=== PATIENT | female | born 1990 | race Two or more races ===

== ENCOUNTER 2023-05-22 08:26 | Day surgery (SDC) | payer OTHER, SELFPAY ==
[2023-05-22 08:56] LABS: Basophils Percent Auto 0.4 % (0.2-2.0); Eosinophils Absolute Auto 0.1 10^3/uL (0.0-0.7); Eosinophils Percent Auto 1.3 % (0.9-7.0); Hematocrit 36.4 % (36.0-48.0); Hemoglobin 12.1 g/dL (12.0-16.0); Immature Granulocytes Abs Auto 0.01 10^3/uL (0.00-0.03); Immature Granulocytes Pct Auto 0.1 % (0.0-0.5); Lymphocytes Absolute Auto 2.4 10^3/uL (1.2-3.8); Lymphocytes Percent Auto 33.7 % (20.5-60.0); Mean Corpuscular HGB Conc 33.2 g/dL (29.9-35.2); Mean Corpuscular Hemoglobin 26.7 pg (26.7-34.0); Mean Corpuscular Volume 80.4 fL (81.0-99.0); Mean Platelet Volume 8.8 fL (9.5-13.5); Monocytes Absolute Auto 0.5 10^3/uL (0.3-0.8); Monocytes Percent Auto 7.2 % (1.7-12.0); Neutrophils Percent Auto 57.3 % (43.0-75.0); Platelet Count 257 10^3/uL (150-450); Red Blood Count 4.53 10^6/uL (4.20-5.40)
[2023-05-22 08:58] VITALS: BMI 37.7
[2023-05-22 09:05] LABS: Glucometer 129 mg/dL (74-106)
[2023-05-22 09:17] VITALS: BP 170/92; PULSE 77; RESP 16; TEMP 36.3; O2SAT 98
[2023-05-22] MEDS: LACTATED RINGER'S SOLUTION 1,000 ML 50 ML IV (09:25)
[2023-05-22 09:31] LABS: HCG Quantitative 21524 mIU/mL
--- NOTE | 2023-05-22 10:00 | PM.ONB ---
Brief Operative Note Date of procedure: 05/22/23 Pre-op diagnosis: missed first trimester Post-op diagnosis: same as pre-op Procedure: NAME OF PROCEDURE: [D&C suction ] PROCEDURE: The patient was taken back to the OR where she was given general anesthesia without difficulty. She was then placed in dorsal lithotomy position, prepped and draped in the normal sterile fashion. A weighted speculum was placed in the patient's vagina and the anterior lip of the cervix was identified and grasped with a single-tooth tenaculum. The patient was then gently dilated using Hegar dilators after we had sounded roughly to 10 cm. The suction curette was then tested. The suction curette was then placed in the patient's uterus and products of conception were removed using an 10-[place] suction curette. ?Excellent hemostasis was noted. The patient tolerated the procedure well. Sponge, lap, and needle counts were correct x 2. All instruments were then removed from the patient's vagina. The patient was taken to the Recovery Room in stable condition. ?? Anesthesia: JESIA Surgeon: Milo Quiroz Estimated blood loss (mL): 5 Pathology: other (poc) Condition: stable Disposition: PACU Urinary Catheter Management Urinary Catheter Management Urethral: Cath placed during this visit: no
[2023-05-22 10:05] VITALS: BP 114/80; PULSE 69; RESP 14; TEMP 36.9; O2SAT 92
[2023-05-22 10:20] VITALS: BP 140/107; PULSE 86; RESP 16; O2SAT 98
[2023-05-22 10:35] VITALS: BP 138/87; PULSE 63; RESP 16; O2SAT 98
[2023-05-22 11:05] VITALS: BP 146/76; PULSE 72; RESP 16; O2SAT 98
== END 2023-05-22 11:20 | disposition home or self-care (01) ==
PROVIDERS: Visit Provider Obstetrics & Gynecology
PROC: (CPT 1965; principal; 2023-05-22 09:30)
DX: O02.1 Missed abortion (principal); R73.03 Prediabetes; I10 Essential (primary) hypertension
CPT/HCPCS: 59820; 36415; 82948; 84702; 85025; 86850; 86900; 86901; 88305; 99999; J1094; J2704

== ENCOUNTER 2024-09-09 09:50 | Outpatient (OUT) | payer OTHER, SELFPAY ==
--- NOTE | 2024-09-09 10:00 | CA_ITS ---
Patient Name: BLANK COOLEY MR#: [id number] : 1990 Exam Date: 09/09/2024 Ordering Doctor: KATELYN LANZA ECHOCARDIOGRAM REPORT PROCEDURE: CA ECHO DOPPLER COMPLETE INDICATIONS: Murmur, hypertension COMPARISON: None. DESCRIPTION: COMPLETE ECHOCARDIOGRAM Real-time transthoracic echocardiography with 2D, M-mode, spectral and color flow Doppler performed. QUALITY: Technical quality was good. LEFT VENTRICLE: Normal chamber size. Mildly increased left ventricular wall thickness. LV EF: Global left ventricular systolic function is normal; visually estimated ejection fraction is 55 to 60%. No significant wall motion abnormalities. DIASTOLIC: Normal diastolic function. ATRIAL SEPTUM: Visually appears intact. LEFT ATRIUM: Mild dilatation. RIGHT ATRIUM: Normal chamber size. RIGHT VENTRICLE: Normal chamber size. Normal right ventricular systolic function. TRICUSPID VALVE: Normal mobility and thickness. No stenosis with trivial regurgitation. No evidence of pulmonary hypertension. RVSP 29 mmHg MITRAL VALVE: Normal mobility and thickness. No evidence of mitral valve stenosis. There is no mitral annular calcification. Trivial mitral regurgitation. AORTIC VALVE: Cannot exclude bicuspid valve. No visible sclerosis. Normal leaflet mobility. No evidence of aortic valve stenosis. Moderate to severe aortic regurgitation. AORTIC ROOT: Normal diameter and appearance. Ascending aorta is normal in size. PULMONIC VALVE: Normal thickness and mobility. No stenosis. Trivial regurgitation. PERICARDIUM: No evidence of pericardial effusion. IVC: Collapses with inspiration. IVC is normal in size. CONCLUSION: 1. Global left ventricular systolic function is normal; visually estimated ejection fraction is 55 to 60% 2. Normal right ventricular size and systolic function 3. Mild increased left ventricular wall thickness 4. The left atrium is mildly dilated 5. Normal diastolic function 6. Cannot exclude a bicuspid aortic valve; moderate to severe aortic valve regurgitation - a transesophageal echocardiogram is recommended for further evaluation of the aortic valve and the severity of the aortic regurgitation Adult Echocardiography Procedure Report Left Ventricle LVEDD (3.7 - 5.6 cm): 5.28 cm LVESD (2.2 - 4.0 cm): 3.74 cm LVIVS thickness (0.6 - 1.2 cm): 1.2 cm LVPW thickness (0.5 - 1.0 cm): 1.1 cm e': 0.11 m/s E - e': 11.89 LVOT Max Gradient: 6.73 mm[Hg] LVOT Area (cm2): 1.30 m/s Peak Velocity (LVOT): 1.30 m/s Mean Velocity (LVOT): 0.92 m/s LVOT Diameter 1.96 cm Left Ventricular Ejection Fraction: 63.72 % Left Atrium LA Volume Index (2D A2C): 38.28 ml/m2 Left Atrium Systolic Dimension: 3.55 cm Mitral Valve MV E to A Ratio: 2.33 Mitral Valve A-Wave Peak Velocity: 0.54 m/s Mitral Valve E-Wave Peak Velocity: 1.27 m/s Right Ventricle Aorta AO Root Diam: 3.09 cm Ascending Ao Diam: 3.03 cm Aortic Valve AoV Area (Peak Jared): 1.97 cm2, 1.97 cm2 AoV Area (VTI): 2.09 cm2, 2.09 cm2 Deceleration Gallia: 1.75 m/s2 Pressure Half-Time: 855.24 ms Peak Velocity(Antegrade Flow): 2.00 m/s Peak Gradient(Antegrade Flow): 15.94 mm[Hg] Mean Velocity(Antegrade Flow): 1.41 m/s Mean Gradient(Antegrade Flow): 8.87 mm[Hg] Velocity Time Integral: 43.92 cm Tricuspid Valve Peak Velocity (Regurgitant Flow): 2.56 m/s Pulmonic Valve Peak Velocity: 1.10 m/s Peak Gradient: 4.87 mm[Hg] Right Atrium Right Atrium Systolic Pressure: 50.91 ml, 50.91 ml Dictated by: Ha Friend M.D. on 09/10/2024 at 16:27 Approved by: Ha Friend M.D. on 09/10/2024 at 16:40
== END 2024-09-09 09:51 | disposition home or self-care (01) ==
LOC: CARD 09:50
DX: R01.1 Cardiac murmur, unspecified (principal); I10 Essential (primary) hypertension
CPT/HCPCS: 93306